=== PATIENT | female | born 1970 | race African-American/Black ===

== ENCOUNTER 2019-05-26 10:44 | Emergency (ER) | payer OTHER ==
[~2019-05-26] VITALS: Ht 165.1 cm; Wt 86.2 kg
[2019-05-26 11:10] LABS: URINE BILIRUBIN NEGATIVE (Negative); URINE BLOOD 1+ (Negative); URINE CLARITY CLEAR; URINE COLOR YELLOW; URINE GLUCOSE-RANDOM* NEGATIVE (Negative); URINE KETONES NEGATIVE (Negative); URINE LEUKOCYTES-REFLEX NEGATIVE (Negative); URINE NITRITE-REFLEX NEGATIVE (Negative); URINE PROTEIN (DIPSTICK) NEGATIVE (Negative); URINE UROBILINOGEN 0.2 E.U./dl (0.2-1.0)
[2019-05-26 11:21] LABS: BACTERIA-REFLEX 1-9 Few /HPF (None Seen); CASTS None Seen /LPF (None Seen); CRYSTALS None Seen /LPF (None Seen); SQUAMOUS 0-3 Few /LPF (0-3); URINE RBC None Seen /HPF (0-2); URINE WBC-REFLEX 0-5 Rare /HPF (0-5)
[2019-05-26 12:41] LABS: ABSOLUTE NEUTROPHILS 5.8 thou/uL (1.4-8.2); BASOPHILS 0.6 % (0.0-2.0); HEMATOCRIT 44.6 % (37.0-47.0); HEMOGLOBIN 14.7 gm/dL (12.0-15.0); LYMPHOCYTES 24.8 % (24.0-44.0); MCH 31.2 pg (26.0-34.0); MCV 94.7 fL (80.0-100.0); MONOCYTES 6.2 % (1.0-8.0); PLATELET COUNT 238 thou/uL (150-400); POLYS 67.4 % (36.0-66.0); RBC 4.71 mil/uL (4.20-5.00); RDW 13.2 % (10.5-14.5); WBC 8.6 thou/uL (4.0-11.0)
[2019-05-26 12:47] LABS: CREATININE 0.6 mg/dL (0.6-1.0); POTASSIUM 4.1 mmol/L (3.5-5.1)
[2019-05-26 12:53] LABS: ALBUMIN 3.8 g/dL (3.4-5.0); TOTAL BILIRUBIN 0.2 mg/dL (<0.1-1.0); TOTAL PROTEIN 7.2 g/dL (6.4-8.2)
[2019-05-26 13:15] VITALS: BP 136/77
== END 2019-05-26 13:16 | disposition home or self-care (01) ==
LOC: ER 10:44
PROVIDERS: Emergency Medicine; Physician Assistant
DX: M54.5 Low back pain (principal); R10.31 Right lower quadrant pain; N89.8 Other specified noninflammatory disorders of vagina; E66.9 Obesity, unspecified; F17.210 Nicotine dependence, cigarettes, uncomplicated; Z68.31 Body mass index [BMI] 31.0-31.9, adult; Z98.890 Other specified postprocedural states; Z88.1 Allergy status to other antibiotic agents; Z88.8 Allergy status to other drugs, medicaments and biological substances

== ENCOUNTER 2021-05-13 06:43 | Emergency (ER) | payer OTHER ==
[~2021-05-13] VITALS: Ht 167.6 cm; Wt 82.1 kg
[2021-05-13 07:34] LABS: ABSOLUTE NEUTROPHILS 5.8 thou/uL (1.4-8.2); BASOPHILS 0.8 % (0.0-2.0); EOSINOPHILS 1.2 % (0.0-3.0); HEMATOCRIT 47.1 % (37.0-47.0); HEMOGLOBIN 15.6 gm/dL (12.0-15.0); LYMPHOCYTES 24.3 % (24.0-44.0); MCH 31.7 pg (26.0-34.0); MCHC 33.1 g/dL (28.0-37.0); MCV 95.8 fL (80.0-100.0); MONOCYTES 6.3 % (1.0-8.0); PLATELET COUNT 261 thou/uL (150-400); POLYS 67.4 % (36.0-66.0); RBC 4.91 mil/uL (4.20-5.00); RDW 13.7 % (10.5-14.5); WBC 8.6 thou/uL (4.0-11.0)
[2021-05-13 07:41] LABS: ANION GAP 3 mmol/L (7-16); BUN 11 mg/dL (7-18); CALCIUM 8.7 mg/dL (8.5-10.1); CHLORIDE 104 mmol/L (98-107); CO2 26 mmol/L (21-32); CREATININE 0.7 mg/dL (0.6-1.0); GLUCOSE 106 mg/dL (74-106); POTASSIUM 3.5 mmol/L (3.5-5.1); SODIUM 133 mmol/L (136-145)
[2021-05-13 07:51] LABS: ALBUMIN 3.6 g/dL (3.4-5.0); SGOT 14 U/L (15-37); SGPT 23 U/L (14-59); TOTAL BILIRUBIN 0.5 mg/dL (0.2-1.0); TOTAL PROTEIN 7.1 g/dL (6.4-8.2)
[2021-05-13 08:30] VITALS: BP 141/85
--- NOTE | 2021-05-13 09:29 | EKG ---
[address] [address] ELECTROCARDIOGRAM REPORT Name: SANTINO DUNBAR Room #: DEP THOMAS Sandoval#: [id number] Admission: 05/13/21 Attend Phys: Discharge: 05/13/21 Date of : 68 Report #: [id number] [facility] ED Test Date: 2021-05-13 Test Time: 07:19:49 Pat Name: SANTINO DUNBAR Department: Room: Gender: F Health Care Social Worker: lisa : 1970 Requested By: Jeancarlos Otero Order Number: [id number] MD: Ashvin Yoon Measurements Intervals Prospect Rate: 81 P: 54 CT: 129 QRS: 24 QRSD: 98 T: 58 QT: 365 QTc: 424 Interpretive Statements Sinus rhythm No previous ECG available for comparison Electronically Signed On 05-13-2021 9:28:50 INFORMATICS SPEC by Ashvin Yoon [email or web address] <ELECTRONICALLY SIGNED> By: Ashvin Yoon MD, [facility] 05/13/21 0928 07 0719 Ashvin Yoon MD, FACC /EPI
== END 2021-05-13 08:28 | disposition home or self-care (01) ==
LOC: ER 06:43
PROVIDERS: Emergency Medicine
DX: F41.9 Anxiety disorder, unspecified (principal); R00.2 Palpitations; F17.210 Nicotine dependence, cigarettes, uncomplicated; Z98.890 Other specified postprocedural states; Z88.1 Allergy status to other antibiotic agents; Z88.6 Allergy status to analgesic agent; Z88.8 Allergy status to other drugs, medicaments and biological substances

== ENCOUNTER 2021-05-28 11:10 | Emergency (ER) | payer OTHER ==
[~2021-05-28] VITALS: Ht 167.6 cm; Wt 83.0 kg
[2021-05-28 11:16] VITALS: BP 143/80
[2021-05-28] MEDS ORDERED: VITAMIN D3 PO (11:22)
[2021-05-28] MEDS ORDERED: VITAMIN C1000 MG PO (11:22)
== END 2021-05-28 11:30 | disposition left against medical advice (07) ==
LOC: ER 11:10
DX: M79.601 Pain in right arm (principal); M79.602 Pain in left arm; R20.8 Other disturbances of skin sensation; F41.9 Anxiety disorder, unspecified; Z53.21 Procedure and treatment not carried out due to patient leaving prior to being seen by health care provider; Z98.890 Other specified postprocedural states